=== PATIENT | female | born 1975 | race Asian ===

== ENCOUNTER 2016-09-26 20:19 | Emergency (ER) | payer OTHER ==
[2016-09-26 21:03] LABS: BASOPHIL % 0.2 % (0-2); PLATELET COUNT 219 x10^3mcL (130-400); RED CELL DISTRIBUTION WIDTH 12.9 % (11.5-14.5)
[2016-09-26 21:13] LABS: AMPHETAMINE QUAL UR NONE DETECTED (NEG <=1000)
[2016-09-26 21:13] LABS: ALBUMIN 3.9 g/dL (3.4-5.0); ALKALINE PHOSPHATASE 51 U/L (46-116); ALT/SGPT 40 U/L (14-59); AST/SGOT 35 U/L (15-37); BILIRUBIN TOTAL 0.5 mg/dL (0.20-1.00); CALCIUM 8.6 mg/dL (8.5-10.1); CARBON DIOXIDE 26.6 mmol/L (21-32); CHLORIDE SERUM 104 mmol/L (98-107); CREATININE SERUM 0.8 mg/dL (0.6-1.0); GFR1 > 60 mL/min; GLUCOSE SERUM 123 mg/dL (74-106); SODIUM SERUM 140 mmol/L (136-145); TOTAL PROTEIN, SERUM 7.3 g/dL (6.4-8.2)
[2016-09-26 21:15] LABS: POTASSIUM SERUM 2.9 mmol/L (3.5-5.1)
[2016-09-27 01:16] VITALS: BP 103/58
== END 2016-09-27 01:16 ==
LOC: ED 20:19
PROVIDERS: Emergency Medicine
DX: S41.112A Laceration without foreign body of left upper arm, initial encounter (principal); F32.9 Major depressive disorder, single episode, unspecified; E87.6 Hypokalemia; W45.8XXA Other foreign body or object entering through skin, initial encounter; Y93.89 Activity, other specified; Y99.8 Other external cause status; Y92.89 Other specified places as the place of occurrence of the external cause
CPT/HCPCS: 80307; G0480; J2001; Q0092